=== PATIENT | male | born 1970 | race Two or more races ===

== ENCOUNTER 2018-01-28 07:41 | Emergency (ER) | payer OTHER ==
[2018-01-28] MEDS ORDERED: FAMOTIDINE 20 MG/50 ML IVPB 20 MG/50 ML MG IVPB ONE (07:46)
[2018-01-28] MEDS ORDERED: methylPREDNISolone NA SUCC 125 MG/2 ML VIAL ONE (07:46)
--- NOTE | 2018-01-28 07:53 | PDOC ---
Attending Attestation - Resident Resident Name: Cee Duffy - ED Attending Attestation I have performed the following: I have examined & evaluated the patient, The case was reviewed & discussed with the resident, I agree w/resident's findings & plan, Exceptions are as noted - HPI HPI: 48 yo M no PMH presents with lip swelling that started just prior to arrival. He states it occurred after he ate a beef dish. He is unaware of any allergens. He does not take any medication. Denies difficulty breathing. No prior similar symptoms. - Physicial Exam PE: GENERAL: Awake, alert, and fully oriented, in no acute distress HEAD: No signs of trauma EYES: PERRLA, EOMI, sclera anicteric, conjunctiva clear ENT: Auricles normal inspection, hearing grossly normal, nares patent, oropharynx clear without exudates. Moist mucosa. +Upper lip edema with urticarial rash. NECK: Normal ROM, supple, no lymphadenopathy, JVD, or masses LUNGS: Breath sounds equal, clear to auscultation bilaterally. No wheezes, and no crackles HEART: Regular rate and rhythm, normal S1 and S2, no murmurs, rubs or gallops ABDOMEN: Soft, nontender, normoactive bowel sounds. No guarding, no rebound. No masses EXTREMITIES: Normal range of motion, no edema. No clubbing or cyanosis. No cords, erythema, or tenderness NEUROLOGICAL: Cranial nerves II through XII grossly intact. Normal speech, normal gait. SKIN: Warm, Dry, normal turgor, no rashes or lesions noted. - Medical Decision Making Pt presents with allergic reaction. Will give steroids, H1/H2 blockers, monitor in ED at least 4-6 hours.
--- NOTE | 2018-01-28 07:53 | PDOC ---
History of Present Illness - General Stated Complaint: ALLERGIC REACTION Time Seen by Provider: 01/28/18 07:47 History Source: Patient Exam Limitations: No Limitations - History of Present Illness Initial Comments: This is a 48 YOM with unremarkable PMH who p/w about one hour of left upper lip swelling and facial flushing that he believes is an allergic reaction. He has not eaten anything or taken any medication this morning, and did not eat any new foods in the past 24 hours. He works in [employer] here at [facility] but knows of no new exposures he has had. He denies any new soaps or laundry detergents. He takes no medications on a regular basis. He denies any difficulty breathing, throat closing sensation, headache, vision change, nausea , vomiting, abdominal pain, diarrhea, additional skin changes, dizziness, or other symptoms. He notes that this happened to him on Saturday night as well, to his left lower lip, but it was not nearly as bad and resolved spontaneously. Past History - Past Medical History Allergies/Adverse Reactions: Allergies Allergy/AdvReac Type Severity Reaction Status Date / Time No Known Allergies Allergy Verified 01/28/18 08:08 Home Medications: Ambulatory Orders EPINEPHrine (EPI-PEN 0.3MG) [Epipen 0.3MG -] 0.3 mg IM ASDIR #2 pens 01/28/18 Prednisone [Deltasone] 20 mg PO BID #10 tablet 01/28/18 Review of Systems - Review of Systems Able to Perform ROS?: Yes Constitutional: No: Chills, Fever, Unexplained wgt Loss HEENTM: Yes: Mouth Swelling, Other (facial flushing). No: Nose Congestion, Throat Pain, Throat Swelling, Difficulty Swallowing Respiratory: No: Cough, Shortness of Breath Cardiac (ROS): No: Chest Pain, Palpitations ABD/GI: No: Constipated, Diarrhea, Nausea, Vomiting : No: Burning, Dysuria Musculoskeletal: No: Back Pain, Neck Pain Integumentary: No: Bruising, Rash Neurological: No: Headache, Numbness, Tingling, Weakness, Dizziness Endocrine: No: Unexplained Weight Gain, Unexplained Weight Loss *Physical Exam - Physical Exam General Appearance: Yes: Nourished, Appropriately Dressed, Other (well appearing Upper Sorbian speaking adult male with obvious left upper lip angioedema). No: Apparent Distress HEENT: positive: EOMI, Normal Voice, Hearing Grossly Normal, Other (left upper lip angioedema which worsens slightly while physical exam is being done, no posterior). negative: Scleral Icterus (R), Scleral Icterus (L), Nasal Congestion Neck: positive: Trachea midline, Supple. negative: Tender, Rigid Respiratory/Chest: positive: Lungs Clear, Normal Breath Sounds. negative: Respiratory Distress, Crackles, Rhonchi, Stridor, Wheezing Cardiovascular: positive: Regular Rhythm, Regular Rate. negative: Murmur Gastrointestinal/Abdominal: positive: Normal Bowel Sounds, Soft. negative: Tender, Organomegaly, Pulsatile Mass, Guarding Musculoskeletal: positive: Normal Inspection. negative: Decreased Range of Motion, Vertebral Tenderness Extremity: positive: Normal Capillary Refill, Normal Inspection, Normal Range of Motion. negative: Tender, Cyanosis Integumentary: positive: Normal Color, Dry, Warm. negative: Erythema, Rash, Bruising Neurologic: positive: house wirer II-XII NML intact, Fully Oriented, Alert, Normal Mood/ Affect, Normal Response, Motor Strength 5/5 Medical Decision Making - Medical Decision Making This is a 48 YOM with unremarkable PMH who p/w one hour of left upper lip angioedema. Same thing happened to him two days ago but milder and resolved spontaneously. He has not eaten any new foods or taken any medications recently. On exam he is hypertensive with systolic BP in the 160s initially. Marked left upper lip angioedema which worsens during exam and is worse on reexam. No throat swelling, no tongue swelling, no abdominal ttp or other skin changes. Dx angioedema from unknown exposure - most likely will not find cause, patient denies new soaps/foods/meds. No known insect bites or other possible provoking factors. Ordered is Benadryl 50 mg IV, famotidine, SoluMedrol, IVF. DDX IBNLT angioedema wwo anaphylaxis (unlikely), 01/28/18 08:50 Patient continues to worsen (increase superior labial angioedema with spread to right side as well). Epi 0.3 mg 1:1000 ordered and given after patient's BP re-checked to be in the 130s systolic. Plan is for observation period of 6 hours, home Prednisone course if resolved 01/28/18 13:24 Patient has continued upper lip swelling (only slightly improved after epi) though facial flushing remains improved. Spoke with the patient about staying in the hospital which is our official recommendation. I express concern about the continued upper lip swelling and the possibility that his throat could close off. He states that his throat feels fine, he never had difficulty breathing, and he wants to go home. I do explain the risk that the swelling can spread to the throat and close off his airway. I also explain that the strong medications we have given in the ED do wear off and the symptoms may worsen at home. He understands this risk and states that he will call 911 to be brought to the ED if any new symptoms. He will need to leave AMA and agrees to sign the AMA form. I will send E-Rx to his pharmacy for prednisone 40 mg daily x5 days, and EpiPen. I also pastoral counselor him to take benadryl 50 mg every 4-6 hours for any symptoms. He signs the AMA form, return precautions are discussed and he will follow up with his PCP tomorrow. *DC/Admit/Observation/Transfer Diagnosis at time of Disposition: Angioedema Qualifiers: Encounter type: initial encounter Qualified Code(s): T78.3XXA - Angioneurotic edema, initial encounter - Discharge Dispostion Disposition: AGAINST MEDICAL ADVICE Condition at time of disposition: Fair Admit: No - Prescriptions Prescriptions: EPINEPHrine (EPI-PEN 0.3MG) [Epipen 0.3MG -] 0.3 mg IM ASDIR #2 pens Prednisone [Deltasone] 20 mg PO BID #10 tablet - Referrals Referrals: Pierre James MD [Primary Care Provider] - - Patient Instructions Printed Discharge Instructions: DI for Angioedema Additional Instructions: Usted fue vista en la brandt de emergencias por desire inflamacin de los labios que creemos que se debe a desire reaccin alrgica. No sabemos la causa exacta. Le administramos medicamentos por va intravenosa, incluidos benadryl, pepcid, solumedrol (un esteroide) y tambin desire inyeccin de epinefrina. esto no resolvi tu hinchazn por completo. Le recomendamos encarecidamente que permanezca en el hospital debido al riesgo de que singh stephanie pueda hincharse y hacer que deje de respirar. Usted quera irse a singh casa y le hicimos firmar un formulario para irse en contra de un consejo mdico. Estamos enviando recetas para prednison ( un esteroide) y un EpiPen a singh farmacia. por favor, rachell esto de inmediato. [place] desire pastilla si le da prednisona todas las maanas y todas las noches. Por favor rachell tu primera pastilla de prednisona esta noche. Use el epipen solo si tiene hinchazn severa. Alesha recoja un poco de benadryl de la farmacia y tome de 25 a 50 mg cada 4-6 horas para detectar cualquier sntoma. Consulte a singh mdico primario maana por la maana (revisemos singh consultorio y lo esperamos maana) o llame al 911 para regresar a la brandt de emergencias si tiene sntomas nuevos o que empeoran, ang dificultad respirar, empeoramiento de la hinchazn, erupcin cutnea, vmitos, diarrea, dolor abdominal, dolor de filomena o mareos. Print Language: CYMRAES - Post Discharge Activity Forms/Work/School Notes: Back to Work
[2018-01-28] MEDS ORDERED: SODIUM CHLORIDE 1,000 ML IV STA (07:54)
[2018-01-28 08:18] VITALS: BMI 24.2
[2018-01-28] MEDS ORDERED: methylPREDNISolone NA SUCC 125 MG/2 ML VIAL IVPB ONE (08:23)
[2018-01-28] MEDS ORDERED: FAMOTIDINE IV 20 MG/12 ML VIAL IVPUSH ONE (08:32)
[2018-01-28] MEDS ORDERED: EPINEPHrine/PF 1 MG/1 ML (1:1,000) AMPULE IM ONE (08:42)
[2018-01-28] MEDS ORDERED: EPINEPHrine/PF 1 MG/1 ML (1:1,000) AMPULE ONE (08:44)
[2018-01-28 13:18] VITALS: BP 136/94; PULSE 87; TEMP 98.3
== END 2018-01-28 14:29 | disposition left against medical advice (07) ==
LOC: JER 07:41
PROC: 3E0337Z Introduction of Electrolytic and Water Balance Substance into Peripheral Vein, Percutaneous Approach (ICD-10-PCS; principal; 2018-01-28)
PROC: 3E033GC Introduction of Other Therapeutic Substance into Peripheral Vein, Percutaneous Approach (ICD-10-PCS; 2018-01-28)
PROC: 3E023GC Introduction of Other Therapeutic Substance into Muscle, Percutaneous Approach (ICD-10-PCS; 2018-01-28)
PROC: 3E0333Z Introduction of Anti-inflammatory into Peripheral Vein, Percutaneous Approach (ICD-10-PCS; 2018-01-28)
DX: T78.3XXA Angioneurotic edema, initial encounter (principal); T78.40XA Allergy, unspecified, initial encounter
CPT/HCPCS: 99282-25; J7030